=== PATIENT | male | born 1965 | race Caucasian/White ===

== ENCOUNTER 2021-03-24 18:32 | Emergency (ER) | payer OTHER, SELFPAY ==
[2021-03-24 18:50] VITALS: BP 122/83; PULSE 82; RESP 20; TEMP 36.7; O2SAT 98
--- NOTE | 2021-03-24 18:54 | ECG_ITS ---
Measurements Intervals [place] Rate: 73 P: 35 RI: 135 QRS: 14 QRSD: 86 T: 8 QT: 371 QTc: 411 Interpretive Statements SINUS RHYTHM NORMAL ECG Electronically Signed On 03-27-2021 14:27:59 CDT by Atif Richey D.O.
--- NOTE | 2021-03-24 18:54 | ED.CHESTPAIN ---
HPI - Chest Pain General Chief Complaint: Chest Pain Stated Complaint: cp/sob Time Seen by Provider: 03/24/21 18:54 Source: patient Mode of arrival: ambulatory Limitations: no limitations History of Present Illness HPI narrative: Lencho Wynne is a 55 yo male with anxious behavior over a 5-minute episode of chest discomfort around noon with some numbness of his left arm. It resolved on his own and he did nothing to address it until 7:00p when he comes here and is concerned about what might have been going on. He has had no shortness of breath, no further chest pain or discomfort, he has not been lightheaded; medically is only on antidepressant, does not smoke. he is not overweight and has a pcp - whom he did not call today Related Data Home Medications Medication Instructions Recorded Confirmed sertraline mg 03/24/21 Allergies Allergy/AdvReac Type Severity Reaction Status Date / Time No Known Drug Allergies Allergy Verified 10/06/12 10:02 Review of Systems Review of Systems: Narrative: CONSTITUTIONAL: Denies fever, chills, sweats. EYES: Denies visual changes, redness, discharge. ENT: Denies rhinorrhea, congestion, sore throat, otalgia. CARDIOVASCULAR: Denies chest pain, palpitations, edema. RESPIRATORY: Denies dyspnea, wheezing, cough GASTROINTESTINAL: Denies abdominal pain, nausea, vomiting, diarrhea. GENITOURINARY: Denies dysuria, hematuria, abnormal discharge SKIN: Denies rash or itching. NEUROLOGIC: Denies numbness, or focal weakness. PSYCHIATRIC: Denies anxiety or depression. Episode of 5 minutes is chest wall discomfort with arm tingling around noon today that resolved spontaneously but patient decided to come in to be evaluated hours later PMFSH Past Medical History Medical History Anxiety OCD (obsessive compulsive disorder) Renal calculi Family History Family History (Updated 03/24/21 @ 18:58 by Heidi Yoon CNP) Other Colon cancer Social History Social History (Updated 03/24/21 @ 18:58 by Heidi Yoon CNP) Smoking status: Never smoker Alcohol intake: current Comments At time of signature, I agree with nursing past medical, surgical, social and family history. There is no relevant family history pertinent to the presenting complaint. Exam Narrative: Exam Narrative: GENERAL: This is a well-nourished, well-developed patient, in mild distress. anxiety HEAD: normocephalic, atraumatic. EYES: Sclera clear/white. Vision is grossly intact. EARS: External ears normal. Hearing grossly intact. NOSE: External nose normal without nasal discharge, nares without redness, no rhinorrhea. THROAT: Mucous membranes moist, NECK: Neck supple, CARDIOVASCULAR: Regular rate and rhythm without murmurs, gallops, or rubs. RESPIRATORY: Clear to auscultation. Breath sounds equal bilaterally. No wheezes, rales, or rhonchi. GASTROINTESTINAL: Abdomen soft, SKIN: warm, intact with no suspicious lesions or rash, good texture and turgor. NEURO: awake, alert, and oriented to person, place and time. There were no obvious focal neurologic abnormalities. Steady gait EXTREMITIES: Normal range of motion. BACK: Nontender without deformity Course Course Emergency Course: 55-year-old male who comes to the [facility] with complaints of 5 minutes of heart discomfort and numbness in the left arm around noon he decided later hours later to come for evaluation His EKG shows a normal sinus rhythm at 73, he has normal MN interval, there is no QRS abnormality, he has no axis deviation, no PVCs Plan is for patient to follow-up with his primary care physician on Saturday if he should have a recurrent episode he is to go to the ER for blood work and an additional EKG. patient verbalizes understanding and while he is not at risk other than by age (no smoking no drug usage no high blood pressure no high cholesterol) recurrent episode should be worked up Vital Signs Vital s
== END 2021-03-24 19:23 | disposition home or self-care (01) ==
PROVIDERS: Emergency Provider Nurse Practitioner
DX: R07.89 Other chest pain (principal); F41.9 Anxiety disorder, unspecified; F42.9 Obsessive-compulsive disorder, unspecified
CPT/HCPCS: 93005; 99202; G0463

== ENCOUNTER 2021-07-31 20:02 | Emergency (ER) | payer OTHER, SELFPAY ==
[2021-07-31] VITALS (7 sets, daily range): BP systolic 124–134; BP diastolic 74–94; PULSE 76–86; RESP 12–20; TEMP 36.6; O2SAT 92–100
--- NOTE | ~2021-07-31 | XR_ITS ---
EXAMINATION: XR chest 2V DATE: 07/31/2021 20:39 INDICATION: Chest pain. TECHNIQUE: Frontal and lateral views of the chest were obtained. COMPARISON: None. FINDINGS: The chest demonstrates clear lungs without pneumonia, pleural effusion, or pneumothorax. Th e heart size is normal. There is mild anterior wedging of a midthoracic vertebral body, likely chroni c. IMPRESSION: 1. No acute cardiopulmonary disease. Reviewed, dictated and finalized at location A.
--- NOTE | 2021-07-31 20:13 | ECG_ITS ---
Measurements Intervals [place] Rate: 82 P: 25 VA: 139 QRS: 1 QRSD: 92 T: 8 QT: 354 QTc: 414 Interpretive Statements SINUS RHYTHM NORMAL ECG Electronically Signed On 08-01-2021 5:21:50 CDT by Atif Richey D.O.
--- NOTE | 2021-07-31 20:27 | PC.NURSE ---
Called lab and spoke to Pam to add on CMP, Lip [phone]
[2021-07-31 20:33] LABS: Basophils Absolute Auto 0.1 K/mm3 (0.0-0.1); Basophils Percent Auto 0.4 % (0.2-1.2); Eosinophils Absolute Auto 0.5 K/mm3 (0-0.3); Eosinophils Percent Auto 3.6 % (0-4.4); Hematocrit 46.6 % (42.0-52.0); Hemoglobin 15.9 g/dL (14.0-18.0); Immature Granulocyte Absolute 0.04 K/mm3 (0.00-0.031); Immature Granulocyte Percent A 0.3 % (0-0.5); Lymphocytes Absolute Auto 1.53 K/mm3 (0.9-3.2); Lymphocytes Percent Auto 12.1 % (18.3-44.2); Mean Corpuscular HGB Conc 34.1 g/dl (32-36); Mean Corpuscular Hemoglobin 30.9 pg (26-34); Mean Corpuscular Volume 90.7 fl (80-100); Mean Platelet Volume 9.4 fl (7.4-10.4); Monocytes Absolute Auto 0.8 K/mm3 (0.1-0.6); Monocytes Percent Auto 6.6 % (2.6-8.5); Neutrophils Absolute Auto 9.8 K/mm3 (1.3-6.7); Platelet Count Result 275 k/mm3 (150-375); Red Blood Count 5.14 M/mm3 (4.6-6.20); Red Cell Distribution Width 13.9 % (11.5-14.5); White Blood Count 12.7 K/mm3 (4.5-10.0)
[2021-07-31 20:42] LABS: Alanine Aminotransferase 28 U/L (4-50); Albumin Level 4.3 g/dL (3.5-5.1); Alkaline Phosphatase 125 U/L (38-126); Anion Gap 8 mmol/L (8-16); Aspartate Amino Transferase 40 U/L (17-59); Bilirubin,Total 0.6 mg/dL (0.2-1.3); Blood Urea Nitrogen 18 mg/dL (9-20); Calcium 9.6 mg/dL (8.4-10.2); Carbon Dioxide 24 mmol/L (22-30); Chloride 107 mmol/L (98-107); Estimated CRCL calculation 95 ml/min; Estimated Glomerular Filt Rate > 60; Glucose 113 mg/dL (65-110); Lipase 226 U/L (23-300); Potassium 4.3 mmol/L (3.4-5.0); Sodium 139 mmol/L (137-145)
[2021-07-31 20:43] LABS: INR 0.9
[2021-07-31 20:44] LABS: Partial Thromboplastin Time 25.2 SECONDS (22.3-36.8)
[2021-07-31 20:54] LABS: Troponin I < 0.012 ng/mL (0.000-0.034)
--- NOTE | 2021-07-31 20:58 | ED.CHESTPAIN ---
HPI - Chest Pain General Chief Complaint: Chest Pain Stated Complaint: diarrhea, abd pain, chest discomfort, cold sweats Time Seen by Provider: 07/31/21 20:52 Source: RN notes reviewed History of Present Illness HPI narrative: Patient presents emergency department from home for multiple complaints. Patient states that this morning developed some lower midsternal chest pain described as burning in nature he states that is a mild discomfort and has been there throughout the day he states that this evening he developed some abdominal pain in the upper abdomen and had an episode of diarrhea states the following diarrhea the abdominal pain resolved however he went on [employer] and read about all the symptoms and says they could all be symptoms of a heart attack so he presented to the emergency department for further evaluation patient did note mild dizziness with his abdominal pain and diarrhea that is also resolved he states he has been out of his pills for his gastric reflux he denies any shortness of breath Related Data Home Medications Medication Instructions Recorded Confirmed sertraline mg 03/24/21 Allergies Allergy/AdvReac Type Severity Reaction Status Date / Time No Known Drug Allergies Allergy Other Verified 07/31/21 20:36 Review of Systems Review of Systems: Gen.: Denies fevers or chills ENT: Denies congestion Respiratory: Denies shortness of breath or cough CV: Ports lower midsternal chest pain GI: See HPI denies burning, urgency, frequency or hematuria Musculoskeletal: Denies back pain or muscle pain Neuro: Denies numbness, tingling, weakness or focal weakness Skin: Denies rash Except as documented, all other systems reviewed and negative PMFSH Past Medical History Medical History Anxiety OCD (obsessive compulsive disorder) Renal calculi Family History Family History (Updated 03/24/21 @ 18:58 by Heidi Yoon CNP) Other Colon cancer Social History Social History Smoking status: Never smoker Alcohol intake: current Exam Narrative: APPEARANCE: No acute distress, nontoxic, resting in bed EYES: EOMI HEENT: Normocephalic, atraumatic, OMM RESPIRATORY: No respiratory distress Clear to auscultation bilaterally with no rhonchi wheezing or rales. CARDIOVASCULAR: Regular rate and rhythm without murmurs rubs or gallops. ABDOMINAL: Soft, nontender, nondistended, no rebound or guarding MUSCULOSKELETAl: Moves all extremities. No clubbing, cyanosis or edema. NEURO: Awake and alert. Following commands, speech normal, no focal deficits SKIN:: Warm, dry. No rashes lesions or abrasions PSYCHIATRIC: Normal affect/mood, Course Course Emergency Course: Patient states all symptoms are resolved following GI cocktail Discussed with patient results of workup and diagnosis. Discussed need for follow-up with primary care, proper use of medication, and reasons to return to the emergency department. Patient understands and agrees to current treatment plan patient states he is out of his Protonix and will refill Vital Signs Vital signs: Vital Signs Temperature 97.9 F 07/31/21 20:23 Pulse Rate 86 07/31/21 20:23 Respiratory Rate 20 07/31/21 20:23 Blood Pressure 134/94 H 07/31/21 20:23 Pulse Oximetry 94 07/31/21 20:23 Temperature 97.9 F 07/31/21 20:23 Pulse Rate 78 07/31/21 23:12 Respiratory Rate 18 07/31/21 23:12 Blood Pressure 126/75 07/31/21 23:12 Pulse Oximetry 100 07/31/21 23:12 MDM - Chest Pain MDM Narrative Medical decision making narrative: Patient's EKGs and labs are without significant high risk changes. Cardiac risk factors reviewed. Patient is felt likely low risk for ACS and reasonable for further risk stratification testing as an outpatient. Pain was not sudden or maximal in onset without tearing or ripping quality. No other signs of symptoms suggest aort
[2021-07-31 23:31] LABS: Troponin I < 0.012 ng/mL (0.000-0.034)
[2021-08-01 00:17] VITALS: BP 108/79; PULSE 95; RESP 16; O2SAT 96
== END 2021-08-01 00:20 | disposition home or self-care (01) ==
PROVIDERS: Emergency Provider Emergency Medicine; PCP Family Medicine Adolescent Medicine
DX: R10.9 Unspecified abdominal pain (principal); R07.89 Other chest pain; R19.7 Diarrhea, unspecified; F41.9 Anxiety disorder, unspecified; F42.9 Obsessive-compulsive disorder, unspecified; Z87.442 Personal history of urinary calculi
CPT/HCPCS: 36415; 71046; 80053; 83690; 84484; 85025; 85610; 85730; 93005; 99284; A9270

== ENCOUNTER 2021-08-09 18:20 | Emergency (ER) | payer OTHER, SELFPAY ==
--- NOTE | ~2021-08-09 | XR_ITS ---
XR abdomen/kub 1V DATE: 08/09/2021 20:05 INDICATION: Left lower quadrant abdominal pain TECHNIQUE: AP projection, 2 views COMPARISON: None FINDINGS: The psoas shadows are intact. No visceromegaly is evident. There are some nondilated gas containing small bowel segments overlying the left midabdomen, which ma y represent mild adynamic ileus. There is a prominent of fecal material in the right colon but no evidence of bowel obstruction. Degenerative changes of the lumbar spine. IMPRESSION: Mild adynamic ileus is suggested Reviewed, dictated and finalized at Location A. Reviewed, dictated and finalized at location A.
[2021-08-09 18:31] VITALS: BP 128/89; PULSE 115; RESP 16; TEMP 36.7; O2SAT 99
--- NOTE | 2021-08-09 19:46 | ED.ABDPAIN ---
HPI - Abdominal Pain General Chief Complaint: Abdominal Pain Stated Complaint: left side pain Time Seen by Provider: 08/09/21 19:19 Source: patient and RN notes reviewed Mode of arrival: ambulatory Limitations: no limitations History of Present Illness HPI narrative: Patient presents today complaining of left lower quadrant abdominal pain x2 days. Denies nausea, vomiting, diarrhea, constipation, fever, urinary symptoms. Currently rates his pain 2/10, and states the pain is worse with moving and twisting. He denies any additional complaints of any kind. History of GERD and kidney stones. He has been eating and drinking normally. He was seen in the ER at [facility] for chest pain and diarrhea on 31 July. He then followed up with his PCP and was given a prescription for hyoscyamine but has not taken any. MD elicited complaint: abdominal pain Related Data Home Medications Medication Instructions Recorded Confirmed sertraline mg 03/24/21 Adults Multivitamin 08/09/21 hyoscyamine sulfate mg 08/09/21 Allergies Allergy/AdvReac Type Severity Reaction Status Date / Time No Known Drug Allergies Allergy Other Verified 07/31/21 20:36 Review of Systems Review of Systems: CONSTITUTIONAL: Denies body aches, fever, chills, or sweats. EYES: Denies visual changes, redness, or discharge. ENT: Denies rhinorrhea, congestion, sore throat, or otalgia. CARDIOVASCULAR: Denies chest pain, palpitations, or edema. RESPIRATORY: Denies cough or dyspnea. GASTROINTESTINAL: Denies nausea, vomiting, or diarrhea.+ Abdominal pain GENITOURINARY: Denies dysuria or hematuria. SKIN: Denies rash, itching, or wounds. MUSCULOSKELETAL: Denies back pain, joint pain, or myalgia. NEUROLOGIC: Denies headache, numbness, tingling, or weakness. PSYCH: Denies depression or anxiety. [facility] Past Medical History Medical History Anxiety OCD (obsessive compulsive disorder) Renal calculi Family History Family History Other Colon cancer Social History Social History Smoking status: Never smoker Alcohol intake: current Comments At time of signature, I have reviewed and agree with nursing past medical, surgical, social and family history unless otherwise noted. Please see nursing chart for further information. There is no relevant family history pertinent to the presenting complaint Exam Narrative: GENERAL: Well-appearing, well-nourished, and in no acute distress. HEAD: Normocephalic, atraumatic. EYES: EOMI. No redness or drainage. Conjunctivae normal. ENT: Mucous membranes pink and moist. NECK: Normal AROM. Supple. No lymphadenopathy. CHEST: No respiratory distress. Clear to auscultation. HEART: Regular rate and rhythm. No murmur appreciated. Normal peripheral pulses. ABDOMEN: Soft, nondistended, normal active bowel sounds. + Left-sided abdominal tenderness MUSCULOSKELETAL: No bony tenderness. EXTREMITIES: Normal range of motion. No edema. SKIN: Warm, dry, no rash. Capillary refill normal. Normal skin turgor. NEURO: No focal deficits. Alert and oriented x3. Gait steady. PSYCH: Normal affect. No signs of depression or anxiety. Course Vital Signs Vital signs: Vital Signs Temperature 98.0 F 08/09/21 18:31 Pulse Rate 115 H 08/09/21 18:31 Respiratory Rate 16 08/09/21 18:31 Blood Pressure 128/89 08/09/21 18:31 Pulse Oximetry 99 08/09/21 18:31 Temperature 98.0 F 08/09/21 18:31 Pulse Rate 115 H 08/09/21 18:31 Respiratory Rate 16 08/09/21 18:31 Blood Pressure 128/89 08/09/21 18:31 Pulse Oximetry 99 08/09/21 18:31 Reviewed. Pt has been instructed to follow up with his PCP regarding his elevated blood pressure today. MDM - Abdominal Pain Differential Diagnosis Differential diagnosis: Likely abdominal pain, calcul
== END 2021-08-09 20:45 | disposition home or self-care (01) ==
PROVIDERS: Emergency Provider Nurse Practitioner; PCP Family Medicine Adolescent Medicine
DX: R10.32 Left lower quadrant pain (principal)
CPT/HCPCS: 74018; 81003; 99213; G0463

== ENCOUNTER 2021-10-10 15:29 | Outpatient (CLI) | payer OTHER, SELFPAY ==
--- NOTE | ~2021-10-10 | CT_ITS ---
EXAMINATION: CT abdomen pelvis w con EXAM DATE: 10/10/2021 16:11 INDICATION: Right lower quadrant pain. TECHNIQUE: Spiral CT of the abdomen and pelvis was performed following intravenous injection of 100 m L Omnipaque 350. Axial, coronal and sagittal images of the abdomen and pelvis were reviewed. The do se-length product (DLP) for this examination was 717.10 mGy-cm. The exposure was tailored according to patient size (auto mA exposure control), and iterative reconstruction (ASIR) was used as additiona l dose reduction technique. There is no prior study for comparison. FINDINGS: There is a 1.4 cm right liver lobe cyst. The liver, spleen, adrenal glands and pancreas ar e otherwise unremarkable. Gallbladder is unremarkable. No biliary obstruction. Numerous renal lesi ons which are lobular, most are fluid density, probably cysts. Lesion of the posterior cortex left ki dney measures 1.2 cm, could be a hemorrhagic cyst, similar appearing smaller one on the right kidney. Renal cell cancers can't be excluded. There is 5 mm right mid calyceal stone. No ureteral stones or hydronephrosis. Mild prostatomegaly. Small left inguinal fat-containing hernia. The bladder is unre markable. There is no retroperitoneal or pelvic lymphadenopathy. There is appendicolith within an otherwise unremarkable appendix. The stomach and small bowel are un remarkable. There is expected amount of colonic stool. No free intraperitoneal gas. The heart is normal in size. There are no pericardial or pleural effusions. There is a 4 mm nodule right lower lobe, axial image 4 most likely noncalcified granuloma. Optional one-year follow-up chest CT. There are no osteoblastic or osteolytic lesions identified. IMPRESSION: 1. Appendicolith. Appendix otherwise unremarkable. No acute findings. 2. Renal lesions likely cysts and hemorrhagic cysts; follow-up nonemergent MR abdomen with contrast recommended to exclude solid mass. 3. Right nephrolithiasis. Reviewed, dictated and finalized at location B. RAM DEVELOPER
== END 2021-10-10 15:30 | disposition home or self-care (01) ==
PROVIDERS: PCP Family Medicine Adolescent Medicine; Visit Provider Physician Assistant
DX: R10.31 Right lower quadrant pain (principal); K38.1 Appendicular concretions; N28.9 Disorder of kidney and ureter, unspecified; N28.1 Cyst of kidney, acquired; N20.0 Calculus of kidney
CPT/HCPCS: 74177; Q9967

== ENCOUNTER → 2021-10-31 10:43 | Outpatient (CLI) | payer OTHER, SELFPAY ==
--- NOTE | ~2021-10-31 | MR_ITS ---
EXAMINATION: MR abdomen wo/w con DATE: 10/31/2021 11:41 INDICATION: Indeterminate 1.2 cm left renal lesion identified on prior CT. TECHNIQUE: Magnetic resonance imaging (MRI) of the abdomen was performed without and with 17 mL Multi joo intravenous contrast. Sequences included coronal T2-weighted SS-FSE, coronal and axial FS 2D-F IESTA, axial STIR FSE, axial T2-weighted SS-FSE, axial T2-weighted FS SS-FSE, axial diffusion-weighte d SE, axial dual-echo T1-weighted FSPGR, and axial and coronal T1-weighted LAVA. Postcontrast axial T 1-weighted LAVA images were obtained in a time course. Postcontrast coronal T1-weighted LAVA images w ere obtained. COMPARISON: 10/10/2021 FINDINGS: Heart size is normal. No pericardial or pleural effusion. Nonenhancing 1.3 cm T2 hyperintense cyst in the right hepatic lobe. Gallbladder, pancreas, spleen and bilateral adrenal glands are normal. Again seen are multiple simple appearing T2 hyperintense cysts scattered throughout both kidneys. The larg est measuring 4.2 cm at the upper pole of the left kidney and 2.4 cm at the upper pole of the right k idney. There are few additional complex proteinaceous/hemorrhagic cysts in both kidneys which are wit hout enhancement but with slightly decreased T2 hyperintensity and mildly increased T1 signal. 1.4 cm solid enhancing exophytic lesion at the posterior upper pole of the left kidney consistent with louann l cell carcinoma. There is an additional indeterminate 11 mm exophytic lesion at the posterior upper pole of the right kidney with minimally thickened peripheral wall with discernible but not measurable enhancement and with central proteinaceous/hemorrhagic fluid, Bosniak 2F. Visualized portion of the bowels including the appendix are normal. No pathologically enlarged abdominal lymphadenopathy. Moder ate lumbar spondylosis. Normal bone marrow signal throughout. IMPRESSION: 1. 1.4 cm solid enhancing exophytic lesion at the posterior upper pole of the left kidney consistent with renal cell carcinoma. 2. Multiple additional renal cysts and complex cysts including an 11 mm Bosniak 2F cystic lesion massimo esponding to the lesion of concern at the upper pole of the right kidney. Reviewed, dictated and finalized at location B. [employer] IMPRESSION: 1. 1.4 cm solid enhancing exophytic lesion at the posterior upper pole of the l eft kidney consistent with renal cell carcinoma. 2. Multiple additional renal cysts and complex cysts including an 11 mm Bosniak 2F cystic lesion corresponding to the lesion of concern at the upper pole of t he right kidney.
[2021-10-31 11:15] LABS: Estimated Glomerular Filt Rate > 60
== END ==
PROVIDERS: PCP Family Medicine Adolescent Medicine; Visit Provider Physician Assistant
DX: N28.9 Disorder of kidney and ureter, unspecified (principal)
CPT/HCPCS: 74183; A9577

== ENCOUNTER 2021-11-23 15:24 | Emergency (ER) | payer OTHER, SELFPAY ==
--- NOTE | ~2021-11-23 | XR_ITS ---
EXAMINATION: XR chest 2V DATE: 11/23/2021 16:24 INDICATION: Chest tightness. Shortness of breath. TECHNIQUE: Frontal and lateral views of the chest were obtained. COMPARISON: Chest 2 views 07/31/21, CT abdomen and pelvis 10/10/2021 FINDINGS: The chest demonstrates clear lungs without pneumonia, pleural effusion, or pneumothorax. Th e heart size is normal. There is mild chronic anterior wedging of a midthoracic vertebral body. IMPRESSION: 1. No acute cardiopulmonary disease. Reviewed, dictated and finalized at location B. PRINTER
--- NOTE | 2021-11-23 15:26 | ECG_ITS ---
Measurements Intervals [place] Rate: 77 P: 53 WI: 129 QRS: 18 QRSD: 89 T: 27 QT: 367 QTc: 417 Interpretive Statements SINUS RHYTHM ATRIAL COUPLET POSSIBLE LEFT ATRIAL ENLARGEMENT BORDERLINE ST-T WAVE ABNORMALITY- INFERIOR LEADS BASELINE ARTIFACT- III, AVR, AVL, AVF BORDERLINE ECG Electronically Signed On 11-23-2021 15:43:05 SAMPLER FIRST by Atif Richey D.O.
[2021-11-23 15:28] VITALS: BP 118/86; PULSE 73; RESP 18; TEMP 36.2; O2SAT 92
[2021-11-23 15:55] LABS: Basophils Absolute Auto 0.1 K/mm3 (0.0-0.1); Basophils Percent Auto 0.6 % (0.2-1.2); Eosinophils Absolute Auto 0.4 K/mm3 (0-0.3); Eosinophils Percent Auto 4.5 % (0-4.4); Hematocrit 46.9 % (42.0-52.0); Immature Granulocyte Absolute 0.03 K/mm3 (0.00-0.031); Immature Granulocyte Percent A 0.3 % (0-0.5); Lymphocytes Percent Auto 16.3 % (18.3-44.2); Mean Corpuscular HGB Conc 34.1 g/dl (32-36); Mean Corpuscular Volume 90.9 fl (80-100); Mean Platelet Volume 9.5 fl (7.4-10.4); Monocytes Absolute Auto 0.6 K/mm3 (0.1-0.6); Monocytes Percent Auto 6.4 % (2.6-8.5); Neutrophils Absolute Auto 6.2 K/mm3 (1.3-6.7); Neutrophils Percent Auto 71.9 % (45.5-73.1); Platelet Count Result 287 k/mm3 (150-375); Red Blood Count 5.16 M/mm3 (4.6-6.20); Red Cell Distribution Width 13.8 % (11.5-14.5); White Blood Count 8.6 K/mm3 (4.5-10.0)
[2021-11-23 16:04] LABS: Alanine Aminotransferase 28 U/L (4-50); Albumin Level 4.5 g/dL (3.5-5.1); Alkaline Phosphatase 120 U/L (38-126); Anion Gap 10 mmol/L (8-16); Aspartate Amino Transferase 37 U/L (17-59); Bilirubin,Total 0.6 mg/dL (0.2-1.3); Blood Urea Nitrogen 17 mg/dL (9-20); Calcium 9.5 mg/dL (8.4-10.2); Carbon Dioxide 24 mmol/L (22-30); Chloride 104 mmol/L (98-107); Estimated CRCL calculation 108 ml/min; Estimated Glomerular Filt Rate > 60; Glucose 111 mg/dL (65-110); Lipase 113 U/L (23-300); Potassium 4.1 mmol/L (3.4-5.0); Sodium 138 mmol/L (137-145)
[2021-11-23 16:16] LABS: Troponin I < 0.012 ng/mL (0.000-0.034)
[2021-11-23 16:47] LABS: INR 1.1; Prothrombin Time 13.9 Seconds (11.1-14.7)
[2021-11-23 16:48] LABS: Partial Thromboplastin Time 27.3 SECONDS (22.3-36.8)
[2021-11-23 18:22] VITALS: BP 117/83; PULSE 80; RESP 16; O2SAT 98
[2021-11-23 19:08] LABS: Troponin I < 0.012 ng/mL (0.000-0.034)
[2021-11-23 19:29] VITALS: BP 126/84; PULSE 65; PULSE 67; RESP 18; O2SAT 97
[2021-11-23 20:00] VITALS: BP 118/86; PULSE 71; RESP 17; O2SAT 93
--- NOTE | 2021-11-23 20:03 | ED.CHESTPAIN ---
HPI - Chest Pain General Chief Complaint: Chest Pain Stated Complaint: CP Time Seen by Provider: 11/23/21 19:40 History of Present Illness HPI narrative: Patient is a 56-year-old male who presents to the ER with intermittent chest tightness over the last 2 days. Tightness will be central. No radiation. No association with exertion. No nausea or vomiting or dizziness. No diaphoresis or dyspnea. No history of heart disease. No alleviating factors. Recently diagnosed with kidney cancer and is going to be seeing urology. Patient also reports he has been diagnosed with a kidney stone and he takes Flomax and tramadol. Related Data Home Medications Medication Instructions Recorded Confirmed sertraline mg 03/24/21 Adults Multivitamin 08/09/21 hyoscyamine sulfate mg 08/09/21 Allergies Allergy/AdvReac Type Severity Reaction Status Date / Time No Known Drug Allergies Allergy Other Verified 11/23/21 19:31 Review of Systems Review of Systems: All systems reviewed & are unremarkable except as noted in HPI and below Constitutional: Constitutional: Denies chills, Denies fever(s) and Denies weakness ENT: Denies nasal congestion and Denies sore throat Cardiovascular: Cardiovascular: Reports chest pain, Denies rapid heart rate and Denies radiating jaw, neck or arm pain Respiratory: Respiratory: Denies cough, Denies dyspnea and Denies wheezing Gastrointestinal: Gastrointestinal: Denies diarrhea, Denies nausea and Denies vomiting Genitourinary: Genitourinary: Denies hematuria, Denies dysuria and Denies urinary frequency PMFSH Past Medical History Medical History (Updated 11/23/21 @ 20:32 by Per Sharma MD) Anxiety Cancer of kidney OCD (obsessive compulsive disorder) Renal calculi Surgical History Surgical History (Updated 11/23/21 @ 20:30 by Per Sharma MD) No pertinent past surgical history Family History Family History Other Colon cancer Social History Social History Smoking status: Never smoker Alcohol intake: current Exam Narrative: GENERAL: Well-appearing, well-nourished, and in no acute distress. HEAD: Normocephalic, atraumatic. CHEST: Clear to auscultation. No respiratory distress. HEART: Regular rate and rhythm. Normal peripheral pulses. ABDOMEN: Soft, nontender, nondistended. EXTREMITIES: Normal range of motion. No edema. SKIN: Warm, dry, no rash. NEURO: Alert and oriented x3. PSYCH: Normal mood and affect. Course Course Emergency Course: Previous imaging reviewed. Appendicolith present on CT scan from 6 weeks ago. No tenderness on abdominal exam today. EKG and troponins negative for acute ischemia. Recommend follow-up with PCP. Vital Signs Vital signs: Vital Signs Temperature 97.1 F L 11/23/21 15:28 Pulse Rate 73 11/23/21 15:28 Respiratory Rate 18 11/23/21 15:28 Blood Pressure 118/86 11/23/21 15:28 Pulse Oximetry 92 11/23/21 15:28 Temperature 97.1 F L 11/23/21 15:28 Pulse Rate 75 11/23/21 20:16 Respiratory Rate 19 11/23/21 20:16 Blood Pressure 118/86 11/23/21 20:00 Pulse Oximetry 93 11/23/21 20:16 MDM - Chest Pain Lab Data Result diagrams: 11/23/21 15:38 11/23/21 15:38 Labs: Lab Results 11/23/21 11/23/21 11/23/21 Range/Units 15:38 15:38 15:38 WBC 8.6 (4.5-10.0) K/mm3 RBC 5.16 (4.6-6.20) M/mm3 Hgb 16.0 (14.0-18.0) g/dL Hct 46.9 (42.0-52.0) % MCV 90.9 (80-100) fl MCH 31.0 (26-34) pg MCHC 34.1 (32-36) g/dl RDW 13.8 (11.5-14.5) % Plt Count 287 (150-375) k/mm3 MPV 9.5 (7.4-10.4) fl Immature Gran % (Auto) 0.3 (0-0.5) % Neut % (Auto) 71.9 (45.5-73.1) % Lymph % (Auto) 16.3 L (18.3-44.2) % [place] % (Auto) 6.4 (2.6-8.5) % Eos % (Auto) 4.5 H (0-4.4) % Baso % (Auto) 0.6 (0.2-1.2) % Lymph #
[2021-11-23 20:15] VITALS: PULSE 78; RESP 12; O2SAT 93
[2021-11-23 20:16] VITALS: PULSE 75; RESP 19; O2SAT 93
== END 2021-11-23 20:30 | disposition home or self-care (01) ==
PROVIDERS: Emergency Medicine; Emergency Provider Emergency Medicine; PCP Family Medicine Adolescent Medicine
DX: R07.89 Other chest pain (principal); C64.9 Malignant neoplasm of unspecified kidney, except renal pelvis; F41.9 Anxiety disorder, unspecified; Z87.442 Personal history of urinary calculi; R00.8 Other abnormalities of heart beat; R94.31 Abnormal electrocardiogram [ECG] [EKG]
CPT/HCPCS: 36415; 71046; 80053; 83690; 84484; 85025; 85610; 85730; 93005; 99284

== ENCOUNTER 2021-12-23 23:09 | Emergency (ER) | payer OTHER, SELFPAY ==
--- NOTE | ~2021-12-23 | XR_ITS ---
EXAMINATION: XR chest 1V portable DATE: 12/24/2021 00:28 INDICATION: Fever and chills. TECHNIQUE: A single frontal view of the chest was obtained. COMPARISON: Chest 2 views 11/23/2021, chest CT 12/24/2021 FINDINGS: There is mild atelectasis in the lower lung zones. No pleural effusion or pneumothorax. The heart size is normal. There is free intraperitoneal gas, consistent with recent surgery. IMPRESSION: 1. Mild atelectasis in the lower lung zones. Reviewed, dictated and finalized at location A. HT TEACHER
--- NOTE | ~2021-12-23 | CT_ITS ---
EXAMINATION: CTA chest PE abdomen pel DATE: 12/24/2021 02:28 INDICATION: Fever. Hypoxia. Surgery yesterday. TECHNIQUE: Computed tomography angiography (CTA) of the chest was performed with 100 mL Omnipaque-350 intravenous contrast timed to evaluate the pulmonary arteries. Coronal maximum intensity projection 3D-reconstructions were created by the technologist. Computed tomography (CT) of the abdomen and pelv is was performed with intravenous contrast. Automated exposure control and iterative reconstruction t echnique were employed. The dose-length product was 1107.88 mGy-cm. COMPARISON: CT abdomen and pelvis 10/10/2021, abdomen MRI 10/31/2021 FINDINGS: CTA chest: The lungs demonstrate dependent atelectasis, worst in the lower lobes and lingula. There i s a trace left pleural effusion. The heart size is normal. No pericardial effusion. There is no pulmo nary embolus. There is mild thoracic spondylosis. CT abdomen and pelvis: There is a 13 mm cyst in the liver. The gallbladder, spleen, pancreas, and adr enal glands are normal. There are changes of partial nephrectomy involving left kidney upper pole. Th ere is a small volume of fluid in the area of the surgery. There is fat stranding in the left retrope ritoneum. There is gas in the left retroperitoneum and body wall. There is a small volume of free gas under the diaphragm. There are cysts and hemorrhagic cysts in the kidneys measuring up to 2.6 cm on the right. There is a left inguinal hernia containing fat. There is trace hemoperitoneum in the pelvi s. There are no dilated loops of bowel. There are changes of appendectomy. There is gas in the bladde r lumen. There is severe lower lumbar spondylosis. IMPRESSION: 1. No pulmonary embolus. 2. Surgical changes of recent left partial nephrectomy. Reviewed, dictated and finalized at location A. [employer]OLOGIST
[2021-12-23 23:23] VITALS: BP 148/79; PULSE 113; RESP 20; TEMP 37.2; O2SAT 94
[2021-12-24] MEDS: SODIUM CHLORIDE 0.9% IV 1,000 ML 999 ML IV CONT (00:17)
[2021-12-24] MEDS: MORPHINE SULFATE (*CRX) 4 MG/ML INJ IV PUSH (00:17)
[2021-12-24] MEDS: ONDANSETRON INJ 4 MG/2 ML VIAL IV PUSH (00:17)
[2021-12-24 00:27] VITALS: BP 143/85
[2021-12-24 00:32] VITALS: BP 139/88; PULSE 97; RESP 20; O2SAT 91
[2021-12-24 00:32] LABS: Basophils Percent Auto 0.3 % (0.2-1.2); Eosinophils Absolute Auto 0.1 K/mm3 (0-0.3); Eosinophils Percent Auto 0.9 % (0-4.4); Hemoglobin 14.1 g/dL (14.0-18.0); Immature Granulocyte Absolute 0.04 K/mm3 (0.00-0.031); Immature Granulocyte Percent A 0.3 % (0-0.5); Lymphocytes Absolute Auto 1.21 K/mm3 (0.9-3.2); Lymphocytes Percent Auto 10.4 % (18.3-44.2); Mean Corpuscular HGB Conc 34.4 g/dl (32-36); Mean Corpuscular Hemoglobin 31.7 pg (26-34); Mean Corpuscular Volume 92.1 fl (80-100); Mean Platelet Volume 9.5 fl (7.4-10.4); Monocytes Absolute Auto 1.2 K/mm3 (0.1-0.6); Monocytes Percent Auto 10.2 % (2.6-8.5); Neutrophils Percent Auto 77.9 % (45.5-73.1); Platelet Count Result 259 k/mm3 (150-375); Red Blood Count 4.45 M/mm3 (4.6-6.20); Red Cell Distribution Width 14.3 % (11.5-14.5); White Blood Count 11.6 K/mm3 (4.5-10.0)
[2021-12-24 00:43] LABS: Alanine Aminotransferase 25 U/L (4-50); Albumin Level 3.7 g/dL (3.5-5.1); Alkaline Phosphatase 89 U/L (38-126); Anion Gap 4 mmol/L (8-16); Aspartate Amino Transferase 39 U/L (17-59); Bilirubin,Total 0.6 mg/dL (0.2-1.3); Blood Urea Nitrogen 15 mg/dL (9-20); Calcium 9.1 mg/dL (8.4-10.2); Carbon Dioxide 24 mmol/L (22-30); Chloride 108 mmol/L (98-107); Estimated CRCL calculation 107 ml/min; Estimated Glomerular Filt Rate > 60; Glucose 120 mg/dL (65-110); Lactic Acid Reflex 1.3 mmol/L (0.7-2.1); Potassium 3.7 mmol/L (3.4-5.0); Sodium 136 mmol/L (137-145)
[2021-12-24 00:43] LABS: Add Urine Microscopic? NO; Appearance Urine Clear (Clear); Bilirubin Urine Negative (Negative); Blood Urine Negative (Negative); Color Urine Straw (Yellow); Glucose Urine UA Negative (Negative); Ketones Urine Negative (Negative); Leukocyte Esterase Ur Negative LEU/UL (Negative); Nitrate Urine Negative (Negative); Protein Urine Negative (Negative); Specific Grav Ur 1.013 (1.001-1.035); Urobilinogen Urine Negative mg/dL (<2.0)
[2021-12-24 01:09] LABS: SARS-CoV-2 RNA PCR Negative
--- NOTE | 2021-12-24 01:50 | PC.NURSE ---
Patient ambulated with pulse ox, O2 dropped to 87%. Patient ambulated with steady gait. Patient denied any sob. Patient ambulated back to his room and pulse ox increased to 92%.
--- NOTE | 2021-12-24 02:08 | PC.NURSE ---
Patient taken to CT via stretcher.
[2021-12-24 02:28] VITALS: TEMP 37.6
--- NOTE | 2021-12-24 03:38 | ED.GENADULT ---
HPI - General Adult General Chief complaint: Fever Stated complaint: post surgical complications, fever/chills Time Seen by Provider: 12/23/21 23:54 History of Present Illness HPI narrative: Patient 56-year-old gentleman who presents the emergency department with chief complaint of fever. Patient reports he is postoperative from a partial nephrectomy that was done at [facility] by Dr. Garza. Patient reports that he was discharged home has been doing well and tonight noticed a temperature of 101. Patient denies nausea or vomiting reports he has some discomfort in his abdomen from where he had surgery. The patient denies cough denies shortness of breath. Related Data Home Medications Medication Instructions Recorded Confirmed sertraline mg 03/24/21 11/30/21 Adults Multivitamin 08/09/21 11/30/21 hyoscyamine sulfate mg 08/09/21 11/30/21 tamsulosin 0.4 mg capsule 0.4 mg PO DAILY 11/30/21 11/30/21 Allergies Allergy/AdvReac Type Severity Reaction Status Date / Time No Known Drug Allergies Allergy Other Verified 12/24/21 00:21 Review of Systems Review of Systems: A 10 system review of systems was completed on the patient and is negative except for what is stated in the HPI. Nursing and ancillary documentation was reviewed. [facility] Past Medical History Medical History Anxiety Cancer of kidney OCD (obsessive compulsive disorder) Renal calculi Surgical History Surgical History No pertinent past surgical history Family History Family History Other Colon cancer Social History Social History Smoking status: Never smoker Alcohol intake: current Exam Narrative: GENERAL: Well-appearing, well-nourished, and in no acute distress. HEAD: Normocephalic, atraumatic. EYES: PERRLA and EOMI. ENT: Nares clear, no rhinorrhea or epistaxis. Mucous membranes moist. NECK: Supple. CHEST: Clear to auscultation. No respiratory distress. HEART: Regular rate and rhythm. No murmur heard. Normal peripheral pulses. ABDOMEN: Soft, nontender, nondistended, normal active bowel sounds. Incision sites appear intact there is no purulent drainage from the sites. EXTREMITIES: Normal range of motion. No edema. SKIN: Warm, dry, no rash. NEURO: No focal deficits. Alert and oriented x3. PSYCH: Normal mood and affect. Course Course Emergency Course: Laboratory studies showed a white blood cell count of 11.6. Lactate was within normal limits renal function was within normal limits CTA chest and abdomen pelvis showed just postoperative changes throughout the abdomen and no evidence of occult pneumonia. Patient was COVID-19 negative. Patient received IV hydration in the emergency department Case was discussed with Dr. Nguyen who is on-call for the urological service. The patient is to follow-up with his urologist as an outpatient. Vital Signs Vital signs: Vital Signs Temperature 37.2 C 12/23/21 23:23 Pulse Rate 113 H 12/23/21 23:23 Respiratory Rate 20 12/23/21 23:23 Blood Pressure 148/79 H 12/23/21 23:23 Pulse Oximetry 94 12/23/21 23:23 Temperature 37.6 C H 12/24/21 02:28 Pulse Rate 97 12/24/21 00:32 Respiratory Rate 20 12/24/21 00:32 Blood Pressure 139/88 12/24/21 00:32 Pulse Oximetry 91 12/24/21 00:32 Medical Decision Making Vital Signs Vital Signs: Vital Signs Temperature 37.2 C 12/23/21 23:23 Pulse Rate 113 H 12/23/21 23:23 Respiratory Rate 20 12/23/21 23:23 Blood Pressure 148/79 H 12/23/21 23:23 Pulse Oximetry 94 12/23/21 23:23 Temperature 37.6 C H 12/24/21 02:28 Pulse Rate 97 12/24/21 00:32 Respiratory Rate 20 12/24/21 00:32 Blood Pressure 139/88 12/24/21 00:32 Pulse Oximetry 91 12/24/21 00:32
[2021-12-24 03:51] VITALS: BP 139/82; PULSE 99; RESP 17; TEMP 37.4; O2SAT 92
== END 2021-12-24 03:52 | disposition home or self-care (01) ==
PROVIDERS: Emergency Provider Emergency Medicine; PCP Family Medicine Adolescent Medicine
DX: R50.82 Postprocedural fever (principal); C64.2 Malignant neoplasm of left kidney, except renal pelvis; Z90.5 Acquired absence of kidney; Z20.822 Contact with and (suspected) exposure to COVID-19; F41.9 Anxiety disorder, unspecified; F42.9 Obsessive-compulsive disorder, unspecified; Z87.442 Personal history of urinary calculi
CPT/HCPCS: 36415; 71045; 71275; 74177; 80053; 81003; 83605; 85025; 96361; 96374; 96375; 99284; C9803; J2270; J2405; J7030; Q9967; U0003; U0005

== ENCOUNTER 2022-01-17 17:41 | Emergency (ER) | payer OTHER, SELFPAY ==
[2022-01-17 17:48] VITALS: BP 140/77; PULSE 77; RESP 16; TEMP 37.1; O2SAT 97
--- NOTE | 2022-01-17 17:51 | ED.GENADULT ---
HPI - General Adult General Chief complaint: Medical Clearance Stated complaint: cp Source: patient Mode of arrival: ambulatory Limitations: no limitations History of Present Illness HPI narrative: 56-year-old male presented for complaint of left anterior chest discomfort, onset yesterday. Pain is described as a twinge. Denies any associated nausea, vomiting, dizziness, shortness of breath, palpitations. Pain is nonradiating and not reproducible. States is worse when he is standing, better when laying flat. History of renal stones for which she took tramadol yesterday and states he believes the pain started after taking the medicine. Related Data Home Medications Medication Instructions Recorded Confirmed sertraline 50 mg PO DIRECTED 03/24/21 01/17/22 Adults Multivitamin 08/09/21 11/30/21 Allergies Allergy/AdvReac Type Severity Reaction Status Date / Time No Known Drug Allergies Allergy Other Verified 01/17/22 17:45 Review of Systems Review of Systems: CONSTITUTIONAL: Denies body aches, fever, chills, or sweats. EYES: Denies visual changes, redness, or discharge. ENT: Denies rhinorrhea, congestion, sore throat, or otalgia. CARDIOVASCULAR: endorses chest pain denies palpitations, or edema. RESPIRATORY: Denies cough or dyspnea. GASTROINTESTINAL: Denies abdominal pain, nausea, vomiting, or diarrhea. GENITOURINARY: Denies dysuria or hematuria. SKIN: Denies rash, itching, or wounds. MUSCULOSKELETAL: Denies back pain, joint pain, or myalgia. NEUROLOGIC: Denies headache, numbness, tingling, or weakness. PSYCH: Denies depression or anxiety. 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 Please see nursing chart for further information. There is no relevant family history pertinent to the presenting complaint Exam Narrative: GENERAL: Well-appearing, well-nourished, and in no acute distress. HEAD: Normocephalic, atraumatic. EYES: EOMI. No redness or drainage. Conjunctivae normal. ENT: Mucous membranes pink and moist. No rhinorrhea. bilat hearing aides NECK: Normal AROM. Supple. No lymphadenopathy. CHEST: No respiratory distress. Clear to auscultation. HEART: Regular rate and rhythm. No murmur appreciated. Normal peripheral pulses. ABDOMEN: Soft, nontender, nondistended, normal active bowel sounds. MUSCULOSKELETAL: Chest pain not reproducible, full ROM No bony tenderness. EXTREMITIES: Normal range of motion. No edema. SKIN: Warm, dry, no rash. Capillary refill normal. Normal skin turgor. NEURO: No focal deficits. Alert and oriented x3. Gait steady. PSYCH: Normal affect. No signs of depression or anxiety. Course Course Emergency Course: We discussed possible etiologies of cp, states zero pain presently. Pt will monitor for return of pain and worsening of symptoms, and will go to the ER for any concerns. Patient is aware of diagnosis, understands and agrees to treatment plan. Anticipatory guidance given. Patient agrees to follow-up as directed and is aware of reasons to seek care at the emergency department. Portions of this record may have been created with voice recognition software Level of Care: [facility]
== END 2022-01-17 18:06 | disposition home or self-care (01) ==
PROVIDERS: Emergency Provider Nurse Practitioner Family; PCP Family Medicine Adolescent Medicine
DX: R07.89 Other chest pain (principal); F41.9 Anxiety disorder, unspecified; F42.9 Obsessive-compulsive disorder, unspecified; Z85.528 Personal history of other malignant neoplasm of kidney
CPT/HCPCS: 99211; G0463

== ENCOUNTER 2022-09-12 17:30 | Emergency (ER) | payer OTHER, SELFPAY ==
[2022-09-12 17:43] VITALS: BP 132/83; PULSE 76; RESP 16; TEMP 36.4; O2SAT 95
--- NOTE | 2022-09-12 18:15 | ED.ABDPAIN ---
HPI - Abdominal Pain General Chief Complaint: Urogenital-Male Stated Complaint: abd n/v/d Time Seen by Provider: 09/12/22 17:51 Source: patient Mode of arrival: ambulatory Limitations: no limitations History of Present Illness HPI narrative: Patient presents today complaining of left lower quadrant abdominal pain/left flank pain for almost 1 week that has worsened today. Pain is sharp and intermittent. States it is worse in the mornings and is improved throughout the day. States it is also better after he has been moving around. Denies nausea, vomiting, diarrhea, constipation, urinary symptoms, fever. Currently rates pain 10 and has not been taking any [id number] medication for symptoms prior to arrival. History of kidney stones in 2003 as well as left renal carcinoma with tumor removal earlier this year.. Related Data Home Medications Medication Instructions Recorded Confirmed sertraline 50 mg tablet 75 mg PO DAILY 01/31/22 09/12/22 Allergies Allergy/AdvReac Type Severity Reaction Status Date / Time No Known Drug Allergies Allergy Other Verified 09/12/22 17:36 Review of Systems Review of Systems: CONSTITUTIONAL: Denies body aches, fever, chills, or sweats. EYES: Denies visual changes, redness, or discharge. ENT: Denies rhinorrhea, congestion, sore throat, or otalgia. CARDIOVASCULAR: Denies chest pain, palpitations, or edema. RESPIRATORY: Denies cough or dyspnea. GASTROINTESTINAL: Denies nausea, vomiting, or diarrhea.+ Left abdominal pain GENITOURINARY: Denies dysuria or hematuria. SKIN: Denies rash, itching, or wounds. MUSCULOSKELETAL: Denies back pain, joint pain, or myalgia. NEUROLOGIC: Denies headache, numbness, tingling, or weakness. PSYCH: Denies depression or anxiety. 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 Please see nursing chart for further information. There is no relevant family history pertinent to the presenting complaint Exam Narrative: GENERAL: Well-appearing, well-nourished, and in moderate pain distress intermittently when sharp pains appear. HEAD: Normocephalic, atraumatic. EYES: EOMI. No redness or drainage. Conjunctivae normal. ENT: Mucous membranes pink and moist. NECK: Normal AROM. CHEST: No respiratory distress. Clear to auscultation. HEART: Regular rate and rhythm. No murmur appreciated. Normal peripheral pulses. ABDOMEN: Soft, nondistended, normal active bowel sounds.+ Mild tenderness to the left lower quadrant extends laterally. No rebound or guarding. MUSCULOSKELETAL: No bony tenderness. EXTREMITIES: Normal range of motion. No edema. SKIN: Warm, dry, no rash. Capillary refill normal. Normal skin turgor. NEURO: No focal deficits. Alert and oriented x3. Gait steady. PSYCH: Normal affect. No signs of depression or anxiety. Course Course Level of Care: Express Care Visit Vital Signs Vital signs: Vital Signs
== END 2022-09-12 18:30 | disposition short-term general hospital (02) ==
PROVIDERS: Emergency Provider Nurse Practitioner; PCP Family Medicine Adolescent Medicine
DX: R10.32 Left lower quadrant pain (principal); F41.9 Anxiety disorder, unspecified; F42.9 Obsessive-compulsive disorder, unspecified; Z85.528 Personal history of other malignant neoplasm of kidney
CPT/HCPCS: 81003; 99212; G0463

== ENCOUNTER 2022-09-12 18:46 | Emergency (ER) | payer OTHER, SELFPAY ==
--- NOTE | ~2022-09-12 | CT_ITS ---
EXAMINATION: CT abdomen pelvis w con INDICATION: Left lower quadrant pain TECHNIQUE: Computed tomographic images of the abdomen and pelvis were obtained after the administrati on of 100 cc of Omnipaque 350 intravenous contrast. The dose-length product (DLP) was 662.70 mGy-cm. Automated exposure control and iterative reconstruction technique were employed. COMPARISON: 12/24/2021, 10/10/2021 FINDINGS: There are stable nodules of the right lower lobe measuring up to 3 mm. Minimal dependent at electasis is present in the lung bases. The heart size is normal. There is a millimeters cyst of the right hepatic lobe. The spleen, pancreas, gallbladder, and adrenal glands are normal. There are ramirez es of bilateral partial nephrectomy. Simple and hemorrhagic cysts of the kidneys measure up to 2.2 cm on the right. There is a stable 12 mm soft tissue density lesion in the posterolateral aspect of the right mid kidney. There is a 7 mm nonobstructing stone of the right kidney. No pathologically enlarg ed abdominal or pelvic lymph nodes are identified. There is no free intraperitoneal gas or evidence o f bowel obstruction. There is a chronic appendicolith in the otherwise normal appendix. There is a le ft inguinal hernia containing fat. There is moderate lumbar spondylosis. IMPRESSION: 1. No CT correlate for the patient's symptoms. 2. 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 Follow-up CT or MRI without and with contrast in 12 months is recommended. Reviewed, dictated and finalized at location B.
[2022-09-12 19:18] VITALS: BP 130/86; PULSE 69; RESP 20; TEMP 36.8; O2SAT 96
[2022-09-12 19:30] LABS: Basophils Percent Auto 0.5 % (0.2-1.2); Eosinophils Absolute Auto 0.5 K/mm3 (0-0.3); Eosinophils Percent Auto 6.9 % (0-4.4); Hematocrit 45.6 % (42.0-52.0); Hemoglobin 15.4 g/dL (14.0-18.0); Immature Granulocyte Absolute 0.02 K/mm3 (0.00-0.031); Immature Granulocyte Percent A 0.3 % (0-0.5); Lymphocytes Absolute Auto 2.06 K/mm3 (0.9-3.2); Lymphocytes Percent Auto 27.4 % (18.3-44.2); Mean Corpuscular HGB Conc 33.8 g/dl (32-36); Mean Corpuscular Hemoglobin 31.2 pg (26-34); Mean Corpuscular Volume 92.5 fl (80-100); Mean Platelet Volume 9.2 fl (7.4-10.4); Monocytes Absolute Auto 0.8 K/mm3 (0.1-0.6); Monocytes Percent Auto 11.2 % (2.6-8.5); Neutrophils Percent Auto 53.7 % (45.5-73.1); Platelet Count Result 291 k/mm3 (150-375); Red Blood Count 4.93 M/mm3 (4.6-6.20); Red Cell Distribution Width 14.3 % (11.5-14.5); White Blood Count 7.5 K/mm3 (4.5-10.0)
[2022-09-12 19:43] LABS: Alanine Aminotransferase 33 U/L (6-50); Albumin Level 4.4 g/dL (3.5-5.1); Alkaline Phosphatase 114 U/L (38-126); Anion Gap 7 mmol/L (8-16); Aspartate Amino Transferase 35 U/L (17-59); Bilirubin,Total 0.6 mg/dL (0.2-1.3); Blood Urea Nitrogen 17 mg/dL (9-20); Calcium 9.6 mg/dL (8.4-10.2); Carbon Dioxide 27 mmol/L (22-30); Chloride 105 mmol/L (98-107); Estimated CRCL calculation 95 ml/min; Estimated Glomerular Filt Rate > 60; Glucose 100 mg/dL (65-110); Lipase 188 U/L (23-300); Potassium 4.3 mmol/L (3.4-5.0); Sodium 139 mmol/L (137-145)
[2022-09-12 20:01] LABS: Add Urine Microscopic? NO; Appearance Urine Clear (Clear); Bilirubin Urine Negative (Negative); Blood Urine Negative (Negative); Color Urine Yellow (Yellow); Glucose Urine UA Negative (Negative); Ketones Urine Negative (Negative); Leukocyte Esterase Ur Negative LEU/UL (Negative); Nitrate Urine Negative (Negative); Protein Urine Negative (Negative); Specific Grav Ur 1.013 (1.001-1.035); Urobilinogen Urine Negative mg/dL (<2.0)
--- NOTE | 2022-09-12 22:12 | ED.ABDPAIN ---
HPI - Abdominal Pain General Chief Complaint: Abdominal Pain <Deanne Morrell MD - Last Filed: 09/13/22 00:00> Stated Complaint: abd pain <Deanne Morrell MD - Last Filed: 09/13/22 00:00> Time Seen by Provider: 09/12/22 22:12 <Deanne Morrell MD - Last Filed: 09/13/22 00:00> Source: patient <Deanne Morrell MD - Last Filed: 09/13/22 00:00> Mode of arrival: ambulatory <Deanne Morrell MD - Last Filed: 09/13/22 00:00> Limitations: no limitations <Deanne Morrell MD - Last Filed: 09/13/22 00:00> History of Present Illness HPI narrative: Patient is a 57-year-old male with a history of nephrolithiasis, left renal cell carcinoma status post left nephrectomy, presenting to the emergency department for evaluation of intermittent left lower quadrant pain over the past week. Patient reports that pain seems to be exacerbated in the morning and with movement. However, pain is also intermittent in nature and patient states he did take a 15-minute walk today and had no recurrence of pain. When pain does occur, it is located in the left lower quadrant described as aching in nature. Patient reports mild abdominal distention. He denies flank pain. He denies testicular pain, hematuria or dysuria. No urinary frequency. He denies constipation or diarrhea. Patient denies fever, chills, nausea or vomiting. Patient denies any pain at the time of my assessment. <Deanne Morrell MD - Last Filed: 09/13/22 00:00> Related Data Home Medications: Home Medications Medication Instructions Recorded Confirmed sertraline 50 mg tablet 75 mg PO DAILY 01/31/22 09/12/22 <Deanne Morrell MD - Last Filed: 09/13/22 00:00> Allergies/Adverse Reactions: Allergies Allergy/AdvReac Type Severity Reaction Status Date / Time No Known Drug Allergies Allergy Other Verified 09/12/22 17:36 <Deanne Morrell MD - Last Filed: 09/13/22 00:00> Review of Systems Review of Systems: CONSTITUTIONAL: Denies fever, chills, or sweats. EYES: Denies visual changes, redness, or discharge. ENT: Denies rhinorrhea, congestion, sore throat, or otalgia. CARDIOVASCULAR: Denies chest pain, palpitations, or edema. RESPIRATORY: Denies cough or dyspnea. GASTROINTESTINAL: Denies current abdominal pain, nausea, vomiting, or diarrhea. GENITOURINARY: Denies dysuria or hematuria. SKIN: Denies rash or itching. MUSCULOSKELETAL: Denies back pain, joint pain, or myalgia. NEUROLOGIC: Denies headache, numbness, or weakness. 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 <Deanne Morrell MD - Last Filed: 09/13/22 00:00> Family History Family History: Family History Other Colon cancer <Deanne Morrell MD - Last Filed: 09/13/22 00:00> Social History Social History: Social History Smoking status: Never smoker Second hand tobacco smoke exposure: No Alcohol intake: current Drinks per week: 7 Substance use: never Substance use type: does not use Gender identity (if verbalized by the patient): Male Sexual Orientation (if Verbalized by the Patient): Straight or Heterosexual Spiritual care concerns: No Agree to blood products: Yes <Deanne Morrell MD - Last Filed: 09/13/22 00:00> Exam Narrative: GENERAL: Awake, alert, conversant HEAD: Normocephalic, atraumatic. EYES: PERRLA and EOMI. ENT: Nares ziyad
--- NOTE | 2022-09-12 22:30 | PC.NURSE ---
noted that patient states he is here for left side pain that is intermittent and worse when he first gets up in the morning states it also hurts more when he turns to the side. states it gets better through out the day and at this time he has no pain.
== END 2022-09-13 01:10 | disposition home or self-care (01) ==
PROVIDERS: Emergency Provider Emergency Medicine; PCP Family Medicine Adolescent Medicine
DX: R10.32 Left lower quadrant pain (principal); F41.9 Anxiety disorder, unspecified; F42.9 Obsessive-compulsive disorder, unspecified; Z85.528 Personal history of other malignant neoplasm of kidney; Z90.5 Acquired absence of kidney
CPT/HCPCS: 36415; 74177; 80053; 81003; 83690; 85025; 99284; Q9967

== ENCOUNTER 2023-05-23 21:39 | Emergency (ER) | payer OTHER, SELFPAY ==
[2023-05-23] VITALS (12 sets, daily range): BP systolic 121–130; BP diastolic 73–94; PULSE 63–78; RESP 13–18; TEMP 36.3; O2SAT 92–98
--- NOTE | ~2023-05-23 | XR_ITS ---
EXAMINATION: XR chest 2V Exam Date/Time: 05/23/2023 21:59 CDT HISTORY: cp Comparison: 12/24/2021. RESULT: Lines, tubes, and devices: None. Lungs and pleura: Clear. Cardiomediastinal silhouette: Stable. Other: No acute osseous or upper abdominal finding. IMPRESSION: No acute cardiopulmonary process. Reviewed, dictated and finalized at location K.
--- NOTE | 2023-05-23 21:42 | ECG_ITS ---
Measurements Intervals [place] Rate: 70 P: 44 VA: 141 QRS: 33 QRSD: 84 T: 20 QT: 380 QTc: 412 Interpretive Statements SINUS RHYTHM NORMAL ELECTROCARDIOGRAM COMPARED TO ECG 11/23/2021 15:31:21 NO SIGNIFICANT CHANGES Electronically Signed On 05-24-2023 17:03:59 CDT by Yoel Abbott M.D.
[2023-05-23] MEDS: ASPIRIN 81 MG CHEWABLE TABLET 324 MG PO (22:07)
[2023-05-23 22:16] LABS: Basophils Absolute Auto 0.1 K/mm3 (0.0-0.1); Basophils Percent Auto 0.8 % (0.2-1.2); Eosinophils Absolute Auto 0.6 K/mm3 (0-0.3); Eosinophils Percent Auto 7.6 % (0-4.4); Hematocrit 42.6 % (42.0-52.0); Hemoglobin 14.4 g/dL (14.0-18.0); Immature Granulocyte Absolute 0.01 K/mm3 (0.00-0.031); Immature Granulocyte Percent A 0.1 % (0-0.5); Lymphocytes Absolute Auto 2.21 K/mm3 (0.9-3.2); Lymphocytes Percent Auto 29.6 % (18.3-44.2); Mean Corpuscular HGB Conc 33.8 g/dl (32-36); Mean Corpuscular Hemoglobin 31.1 pg (26-34); Mean Platelet Volume 9.1 fl (7.4-10.4); Monocytes Absolute Auto 0.6 K/mm3 (0.1-0.6); Monocytes Percent Auto 8.2 % (2.6-8.5); Neutrophils Percent Auto 53.7 % (45.5-73.1); Platelet Count Result 270 k/mm3 (150-375); Red Blood Count 4.63 M/mm3 (4.6-6.20); Red Cell Distribution Width 14.1 % (11.5-14.5); White Blood Count 7.5 K/mm3 (4.5-10.0)
[2023-05-23 22:25] LABS: Alanine Aminotransferase 26 U/L (6-50); Albumin Level 3.9 g/dL (3.5-5.1); Alkaline Phosphatase 105 U/L (38-126); Anion Gap 4 mmol/L (8-16); Aspartate Amino Transferase 34 U/L (17-59); Bilirubin,Total 0.4 mg/dL (0.2-1.3); Blood Urea Nitrogen 16 mg/dL (9-20); Calcium 8.9 mg/dL (8.4-10.2); Carbon Dioxide 27 mmol/L (22-30); Chloride 107 mmol/L (98-107); Estimated CRCL calculation 123 ml/min; Estimated Glomerular Filt Rate > 60; Glucose 137 mg/dL (65-110); Lipase 189 U/L (23-300); Potassium 3.9 mmol/L (3.4-5.0); Sodium 138 mmol/L (137-145)
--- NOTE | 2023-05-23 22:26 | ED.GENADULT ---
HPI - General Adult General Chief complaint: Chest Pain <NANCIE Fisher Last Filed: 05/24/23 16:57> Stated complaint: chest tightness <Florentino Chua PA-C - Last Filed: 05/24/23 16:57> Time Seen by Provider: 05/23/23 21:54 <Florentino Chua PA-C - Last Filed: 05/24/23 16:57> Source: patient <NANCIE Fisher Last Filed: 05/24/23 16:57> Mode of arrival: ambulatory <NANCIE Fisher Last Filed: 05/24/23 16:57> Limitations: no limitations <Florentino Chua PA-C - Last Filed: 05/24/23 16:57> History of Present Illness HPI narrative: This is a 58-year-old male with no pertinent PMH who presents to the ED with chief complaint of right-sided chest pain beginning about 2 hours prior to arrival in the ED. patient states that it was accompanied with pleuritic chest pain. He states it lasted for about an hour and a half. Reports pain located on the right side of the chest and did not radiate. Denies any LOC, nausea, vomiting. He states that on his way to the emergency department began to resolve. States he still came because he wanted to get it checked out. He states now he is relatively pain-free, still having some pain with deep breathing. Denies any recent illness. Denies fevers, cough, abdominal pain, back pain. <Florentino Chua PA-C - Last Filed: 05/24/23 16:57> Related Data Home medications: Home Medications Medication Instructions Recorded Confirmed sertraline 50 mg tablet 75 mg PO DAILY 01/31/22 03/22/23 multivitamin 1 tablet PO DAILY 03/22/23 03/22/23 <NANCIE Fisher Last Filed: 05/24/23 16:57> Allergies/adverse reactions: Allergies Allergy/AdvReac Type Severity Reaction Status Date / Time No Known Drug Allergies Allergy Other Verified 05/23/23 21:48 <NANCIE Fisher Last Filed: 05/24/23 16:57> [facility] Past Medical History Medical History: Medical History (Updated 05/24/23 @ 00:59 by Florentino Chua PA-C) Anxiety Cancer of kidney (10/2021) GERD (gastroesophageal reflux disease) Hearing loss OCD (obsessive compulsive disorder) Renal calculi <Florentino Chua PA-C - Last Filed: 05/24/23 16:57> Surgical History Surgical History: Surgical History No pertinent past surgical history 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 <Florentino Chua PA-C - Last Filed: 05/24/23 16:57> Family History Family History: Family History (Updated 03/18/23 @ 13:18 by Carolyn Huston [facility]) Mother Breast cancer Other Colon cancer <Florentino Chua PA-C - Last Filed: 05/24/23 16:57> Social History Social History: Social History Smoking status: Never smoker Second hand tobacco smoke exposure: No Alcohol intake: current Drinks per week: 7 Substance use: never Substance use type: does not use Living arrangements: with family Occupation/Education: occupation Gender identity (if verbalized by the patient): Male Sexual Orientation (if Verbalized by the Patient): Straight or Heterosexual Spiritual care concerns: No Agree to blood products: Yes <Florentino Chua PA-C - Last Filed: 05/24/23 16:57> Exam Narrative: GENERAL: Well-appearing, well-nourished, and in no acute distress. HEAD: Normocephalic, atraumatic. EYES: PERRLA and EOMI. ENT: Nares clear, no rhinorrhea or epistaxis. Mucous membranes moist. Oropharynx without tonsillar hypertrophy exudate or other lesions. NECK: Supple. No adenopathy or masses. CHEST: No respiratory distress. Clear to auscultation. No wheezes rales or rhonchi. HEART: Regular rate and rhythm. No murmur heard. Normal peripheral pulses. ABDOMEN: Soft, nontender, nondistended, normal active bowel sounds. MSK: Normal range of motion. No edema. SKIN: Warm, dry, no rash. NEURO: Alert and oriented x3. No focal deficits. PSYCH: Normal mood and
[2023-05-23 22:27] LABS: Prothrombin Time 13.2 Seconds (11.1-14.7)
[2023-05-23 22:28] LABS: Partial Thromboplastin Time 28.6 SECONDS (22.3-36.8)
[2023-05-23 22:37] LABS: Troponin I < 0.012 ng/mL (0.000-0.034)
[2023-05-24] VITALS (15 sets, daily range): BP systolic 116–123; BP diastolic 74–88; PULSE 61–67; RESP 12–21; O2SAT 93–98
[2023-05-24 00:02] LABS: D Dimer 0.31 ug/mL (<0.48)
[2023-05-24 04:02] LABS: Troponin I < 0.012 ng/mL (0.000-0.034)
== END 2023-05-24 04:13 | disposition home or self-care (01) ==
PROVIDERS: Emergency Medicine; Emergency Provider Physician Assistant; PCP Family Medicine Adolescent Medicine
DX: R07.89 Other chest pain (principal); K21.9 Gastro-esophageal reflux disease without esophagitis; F41.9 Anxiety disorder, unspecified; F42.9 Obsessive-compulsive disorder, unspecified; Z85.528 Personal history of other malignant neoplasm of kidney; Z87.442 Personal history of urinary calculi
CPT/HCPCS: 36415; 71046; 80053; 83690; 84484; 85025; 85380; 85610; 85730; 93005; 99284; A9270

== ENCOUNTER 2023-10-05 21:44 | Emergency (ER) | payer OTHER, SELFPAY ==
--- NOTE | ~2023-10-05 | XR_ITS ---
EXAMINATION: XR chest 2V DATE: 10/05/2023 22:20 INDICATION: Chest pain. TECHNIQUE: Frontal and lateral views of the chest were obtained. COMPARISON: Chest 2 views 05/23/2023, CT abdomen and pelvis 09/12/2022 FINDINGS: There is no pneumonia, pleural effusion, or pneumothorax. The heart size is normal. There i s mild chronic anterior wedging of multiple vertebral bodies. IMPRESSION: 1. No acute cardiopulmonary disease. Reviewed, dictated and finalized at location E. D DISTRIBUTOR
--- NOTE | 2023-10-05 21:45 | ECG_ITS ---
Measurements Intervals [place] Rate: 72 P: 43 [place]: 135 QRS: 12 QRSD: 88 T: 35 QT: 361 QTc: 396 Interpretive Statements SINUS RHYTHM BORDERLINE ST-T WAVE ABNORMALITY- ANTERIOR LEADS BORDERLINE ECG COMPARED TO ECG 05/23/2023 21:47:22 NO SIGNIFICANT CHANGES Electronically Signed On 10-06-2023 6:27:03 [employer] by Atif Richey D.O.
[2023-10-05 21:58] VITALS: BP 132/83; PULSE 77; RESP 16; TEMP 36.7; O2SAT 98
[2023-10-05 22:00] LABS: Basophils Absolute Auto 0.1 K/mm3 (0.0-0.1); Basophils Percent Auto 0.7 % (0.2-1.2); Eosinophils Absolute Auto 0.6 K/mm3 (0-0.3); Eosinophils Percent Auto 7.1 % (0-4.4); Hematocrit 44.4 % (42.0-52.0); Hemoglobin 14.7 g/dL (14.0-18.0); Immature Granulocyte Absolute 0.02 K/mm3 (0.00-0.031); Immature Granulocyte Percent A 0.2 % (0-0.5); Lymphocytes Absolute Auto 2.57 K/mm3 (0.9-3.2); Mean Corpuscular HGB Conc 33.1 g/dl (32-36); Mean Corpuscular Hemoglobin 30.6 pg (26-34); Mean Corpuscular Volume 92.3 fl (80-100); Mean Platelet Volume 9.2 fl (7.4-10.4); Monocytes Absolute Auto 0.8 K/mm3 (0.1-0.6); Monocytes Percent Auto 9.6 % (2.6-8.5); Neutrophils Absolute Auto 4.3 K/mm3 (1.3-6.7); Neutrophils Percent Auto 51.4 % (45.5-73.1); Platelet Count Result 274 k/mm3 (150-375); Red Blood Count 4.81 M/mm3 (4.6-6.20); Red Cell Distribution Width 14.1 % (11.5-14.5); White Blood Count 8.3 K/mm3 (4.5-10.0)
[2023-10-05 22:10] LABS: Alanine Aminotransferase 27 U/L (6-50); Albumin Level 4.1 g/dL (3.5-5.1); Alkaline Phosphatase 102 U/L (38-126); Anion Gap 7 mmol/L (8-16); Aspartate Amino Transferase 38 U/L (17-59); Bilirubin,Total 0.6 mg/dL (0.2-1.3); Blood Urea Nitrogen 18 mg/dL (9-20); Calcium 9.4 mg/dL (8.4-10.2); Carbon Dioxide 24 mmol/L (22-30); Chloride 107 mmol/L (98-107); Estimated CRCL calculation 123 ml/min; Estimated Glomerular Filt Rate > 60; Glucose 122 mg/dL (65-110); Lipase 231 U/L (23-300); Potassium 3.8 mmol/L (3.4-5.0); Sodium 138 mmol/L (137-145)
[2023-10-05 22:13] LABS: INR 0.9; Prothrombin Time 12.8 Seconds (11.1-14.7)
[2023-10-05 22:22] LABS: Troponin I < 0.012 ng/mL (0.000-0.034)
[2023-10-06 00:01] VITALS: PULSE 74; RESP 18
--- NOTE | 2023-10-06 00:03 | ED.GENADULT ---
HPI - General Adult General Chief complaint: Chest Pain Stated complaint: chest tightness at around 8pm this evening- Time Seen by Provider: 10/05/23 23:15 History of Present Illness HPI narrative: Patient is a 58-year-old gentleman who presents the emergency department with chief complaint of funny feeling in the right side of the chest and a tingling sensation in the left arm. The patient reports no slurred speech she denied focal weakness of the left upper extremity or left side of the body. The patient states he read on the Internet and decided he should come to the emergency department for evaluation. Patient states that symptoms have essentially resolved at this time. Related Data Home Medications Medication Instructions Recorded Confirmed sertraline 50 mg tablet 75 mg PO DAILY 01/31/22 06/04/23 multivitamin 1 tablet PO DAILY 03/22/23 06/04/23 Allergies Allergy/AdvReac Type Severity Reaction Status Date / Time No Known Drug Allergies Allergy Other Verified 10/05/23 21:44 Review of Systems Review of Systems: A 10 system review of systems was completed on the patient and is negative except for what is stated in the HPI. Nursing and ancillary documentation was reviewed. 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 Family History Family History Mother Breast cancer Father Colon cancer Social History Social History Smoking status: Never smoker Second hand tobacco smoke exposure: No Alcohol intake: current Drinks per week: 7 Substance use: never Substance use type: does not use Lack of Transportation: No Lack of Food: Never True Current Housing: I Have Housing Concerned About Future Housing: No Difficulty Paying Gas/Electric Bills: No Difficulty Paying for Meds: No Currently Unemployed: No Education: Master's Degree or Higher Difficulty w/ Childcare or Family Care: No Living arrangements: with family Occupation/Education: occupation Gender identity (if verbalized by the patient): Male Sexual Orientation (if Verbalized by the Patient): Straight or Heterosexual Spiritual care concerns: No Agree to blood products: Yes Exam Narrative: GENERAL: Well-appearing, well-nourished, and in no acute distress. HEAD: Normocephalic, atraumatic. EYES: PERRLA and EOMI. ENT: Nares clear, no rhinorrhea or epistaxis. Mucous membranes moist. NECK: Supple. CHEST: Clear to auscultation. No respiratory distress. HEART: Regular rate and rhythm. No murmur heard. Normal peripheral pulses. ABDOMEN: Soft, nontender, nondistended, normal active bowel sounds. EXTREMITIES: Normal range of motion. No edema. SKIN: Warm, dry, no rash. NEURO: No focal deficits. Alert and oriented x3. PSYCH: Normal mood and affect. Course Vital Signs Vital signs: Vital Signs Temperature 36.7 C 10/05/23 21:58 Pulse Rate 77 10/05/23 21:58 Respiratory Rate 16 10/05/23 21:58 Blood Pressure 132/83 10/05/23 21:58 Pulse Oximetry 98 10/05/23 21:58 Oxygen Delivery Room Air 10/05/23 21:58 Temperature 36.7 C 10/05/23 21:58 Pulse Rate 74 10/06/23 00:01 Respiratory Rate 18 10/06/23 00:01 Blood Pressure 132/83 10/05/23 21:58 Pulse Oximetry 98 10/05/23 21:58 Oxygen Delivery Room Air 10/05/23 23:16 Medical Decision Making [facility] Narrative Medical decision making narrative: Differential diagnosis includes anxiety, atypical chest pain,
[2023-10-06] MEDS: ASPIRIN 81 MG CHEWABLE TABLET 324 MG PO (01:18)
[2023-10-06 01:55] LABS: Troponin I < 0.012 ng/mL (0.000-0.034)
[2023-10-06 02:00] VITALS: BP 124/86; PULSE 67; RESP 15; O2SAT 93
[2023-10-06 02:34] VITALS: BP 128/93; PULSE 68; RESP 17; O2SAT 95
== END 2023-10-06 02:40 | disposition home or self-care (01) ==
PROVIDERS: Emergency Medicine; Emergency Provider Emergency Medicine; PCP Family Medicine Adolescent Medicine
DX: R07.89 Other chest pain (principal); F41.9 Anxiety disorder, unspecified; F42.9 Obsessive-compulsive disorder, unspecified; Z85.528 Personal history of other malignant neoplasm of kidney; Z87.442 Personal history of urinary calculi; R94.31 Abnormal electrocardiogram [ECG] [EKG]
CPT/HCPCS: 36415; 71046; 80053; 83690; 84484; 85025; 85610; 85730; 93005; 99284; A9270

== ENCOUNTER 2023-11-23 16:11 | Emergency (ER) | payer OTHER, SELFPAY ==
--- NOTE | ~2023-11-23 | XR_ITS ---
EXAM: XR tibia fibula LT 2V DATE: 11/23/2023 17:44 HISTORY: felt pop lt low leg and foot 5 days ago . COMPARISON: None available. FINDINGS: Normal mineralization. Old avulsion fragment at the lateral malleolus. No acute fracture o r dislocation. No lytic or blastic lesion. Mild degenerative change in the knee and ankle. No erosion or periosteal change. Subcutaneous edema in the lower leg. IMPRESSION: No acute osseous finding in the left tibia/fibula. Reviewed, dictated and finalized at location K. NCILING CLERK
--- NOTE | ~2023-11-23 | XR_ITS ---
EXAM: XR foot LT min 3V DATE: 11/23/2023 17:43 HISTORY: felt pop left low leg 5 days ago . COMPARISON: None available. FINDINGS: Normal mineralization. Old avulsion fracture fragment at the lateral malleolus. No acute f racture or dislocation. No lytic or blastic lesion. Mild degenerative change in the ankle joint and f irst MTP joint. Minimal Achilles and moderate plantar enthesopathy No erosion or periosteal change. S oft tissues within normal limits. IMPRESSION: No acute osseous finding in the left foot. Reviewed, dictated and finalized at location K. ATRIC SOCIAL WORKER
[2023-11-23 16:24] VITALS: BP 128/82; PULSE 75; RESP 16; TEMP 37.2; O2SAT 99
--- NOTE | 2023-11-23 17:09 | ED.LOWEXIN ---
HPI - Extremity Injury (Lower) General Chief Complaint: Extremity Injury, Lower Stated Complaint: left calf/foot issue Time Seen by Provider: 11/23/23 17:09 Source: patient Mode of arrival: ambulatory Limitations: no limitations History of Present Illness HPI Narrative: 58-year-old male presents with complaint of pain and swelling to left lower extremity, left ankle and left foot. On 11/18 pt states was going down his stairs and felt pop to L calf that caused him to roll L foot. Pt has been taking ibuprofen for pain and applying ice. Elevating when he can. Swelling and pain not improving. concerned for fracture. All systems reviewed and negative except as noted above. Related Data Home Medications Medication Instructions Recorded Confirmed sertraline 50 mg tablet 75 mg PO DAILY 01/31/22 11/23/23 multivitamin 1 tablet PO DAILY 03/22/23 11/23/23 Allergies Allergy/AdvReac Type Severity Reaction Status Date / Time No Known Drug Allergies Allergy Other Verified 11/23/23 16:39 Review of Systems Review of Systems: CONSTITUTIONAL: Denies fever, chills, or sweats. EYES: Denies visual changes, redness, or discharge. ENT: Denies rhinorrhea, congestion, sore throat, or otalgia. CARDIOVASCULAR: Denies chest pain, palpitations, or edema. RESPIRATORY: Denies cough or dyspnea. GASTROINTESTINAL: Denies abdominal pain, nausea, vomiting, or diarrhea. GENITOURINARY: Denies dysuria or hematuria. SKIN: Denies rash or itching. MUSCULOSKELETAL: Reports pain, swelling and bruising to L calf, ankle and L foot. ambulatory with limp NEUROLOGIC: Denies headache, numbness, or weakness. PSYCHIATRIC: Denies anxiety or depression. All other systems reviewed are negative, except as documented in HPI. 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 Family History Family History Mother Breast cancer Father Colon cancer Social History Social History Smoking status: Never smoker Second hand tobacco smoke exposure: No Alcohol intake: current Drinks per week: 7 Substance use: never Substance use type: does not use Lack of Transportation: No Lack of Food: Never True Current Housing: I Have Housing Concerned About Future Housing: No Difficulty Paying Gas/Electric Bills: No Difficulty Paying for Meds: No Currently Unemployed: No Education: Master's Degree or Higher Difficulty w/ Childcare or Family Care: No Living arrangements: with family Occupation/Education: occupation Gender identity (if verbalized by the patient): Male Sexual Orientation (if Verbalized by the Patient): Straight or Heterosexual Spiritual care concerns: No Agree to blood products: Yes Comments At time of signature, agree with nursing past medical, surgical, social and family history. There is no relevant family history pertinent to the presenting complaint. Exam Narrative: GENERAL: This is a well-nourished, well-developed patient, in no apparent distress. HEAD: normocephalic, atraumatic. EYES: PERRL. Sclera clear/white. Vision is grossly intact. EARS: External ears normal NOSE: External nose normal NECK: Neck supple, non-tender without lymphadenopathy, masses or thyromegaly. CARDIOVASCULAR: Regular rate and rhythm without murmurs, gallops, or rubs. RESPIRATORY: Clear to auscultation. Breath sounds equal bilaterally. No wheezes, rales, or rhonchi. SKIN: warm, Dry, intact with no suspicious lesions or rash, good text
== END 2023-11-23 18:34 | disposition home or self-care (01) ==
PROVIDERS: Emergency Provider Nurse Practitioner Family; PCP Family Medicine Adolescent Medicine
DX: S93.602A Unspecified sprain of left foot, initial encounter (principal); T14.90XA Injury, unspecified, initial encounter; Z85.528 Personal history of other malignant neoplasm of kidney
CPT/HCPCS: 73590; 73630; 99214; G0463

== ENCOUNTER → 2023-12-12 14:25 | Outpatient (CLI) | payer OTHER, SELFPAY ==
--- NOTE | ~2023-12-12 | MR_ITS ---
EXAMINATION: MR ankle LT wo con DATE: 12/12/2023 15:11 INDICATION: Left ankle pain. Posterior ankle pain. TECHNIQUE: Magnetic resonance imaging (MRI) of the left ankle was performed without intravenous contr ast. Sequences included sagittal PD-weighted FS FSE, sagittal PD-weighted FSE, coronal PD-weighted FS FSE, coronal PD-weighted FSE, axial PD-weighted FS FSE, and axial PD-weighted FSE. COMPARISON: Left tibia and fibula radiographs 11/23/2023 FINDINGS: Medial ankle ligaments: There are changes of prior sprain of the deltoid ligament characterized by thickening and increased s ignal involving the superficial component. The deep component of deltoid ligament is normal. Lateral ankle ligaments: There are changes of prior lateral ankle sprain characterized by thickening and increased signal inte nsity involving the anterior talofibular ligament, calcaneofibular ligament, and anterior tibiofibula r ligament. There is an old avulsion fracture of distal fibula at the attachment of the anterior talo fibular ligament. Posterior talofibular ligament and posterior tibiofibular ligament are normal. Tendons: The anterior and medial ankle tendons are normal. There is a longitudinal split tear of peroneus brev is tendon. There is mild peroneus longus tendinopathy. There is mild Achilles tendinopathy. Partially visualized is muscle edema in the posterior calf. Plantar fascia: There is thickening and increased signal involving the central band of the plantar fascia, consistent with fasciitis. There is an enthesophyte at the calcaneal attachment. Bones/other: Bone alignment is normal. No fracture. The talar dome is normal. Fluid: There is no joint effusion. IMPRESSION: 1. Partially visualized edema of the posterior calf musculature, likely muscle strain. 2. Changes of medial and lateral ankle sprains. Old avulsion fracture of distal fibula at the attachm ent of anterior talofibular ligament with nonunion. 3. Longitudinal split tear of peroneus brevis tendon. 4. Plantar fasciitis. Reviewed, dictated and finalized at location E. RESSOR BATTERY PELLETS IMPRESSION: 1. Partially visualized edema of the posterior calf musculature, likely muscle strain. 2. Changes of medial and lateral ankle sprains. Old avulsion fracture of distal fibula at the attachment of anterior talofibular ligament with nonunion. 3. Longitudinal split tear of peroneus brevis tendon. 4. Plantar fasciitis.
== END ==
PROVIDERS: PCP Nurse Practitioner Family; Visit Provider Nurse Practitioner Family
DX: R60.0 Localized edema (principal); S86.312A Strain of muscle(s) and tendon(s) of peroneal muscle group at lower leg level, left leg, initial encounter; M72.2 Plantar fascial fibromatosis; S82.832K Other fracture of upper and lower end of left fibula, subsequent encounter for closed fracture with nonunion; X58.XXXD Exposure to other specified factors, subsequent encounter; X58.XXXA Exposure to other specified factors, initial encounter
CPT/HCPCS: 73721

== ENCOUNTER 2024-07-01 08:36 | Day surgery (SDC) | payer OTHER, SELFPAY ==
[2024-06-04 14:04] VITALS: BMI 31.1
[2024-06-19 13:11] VITALS: BMI 31.1
[2024-07-01 10:03] VITALS: BP 120/74; PULSE 63; RESP 16; TEMP 36.8; O2SAT 95; BMI 29.2
--- NOTE | 2024-07-01 10:16 | PM.HPGS ---
History of Present Illness History of Present Illness Consent: Risks, benefits, and alternatives have been discussed and questions answered. Patient agrees to proceed with procedure. Chief complaint: family history of colon cancer Narrative: Lencho Wynne is a 59 year old male presents for screening colonoscopy. Patient's current weight appetite and bowel movements are normal. Patient has had no bleeding. His bowel habits are normal. Family history is significant that his father had colon cancer. Patient presents today for neoplasia screening colonoscopy. Does have a past medical history of a renal cell carcinoma. Review of Systems Review of Systems: All systems reviewed & are unremarkable except as noted in HPI and below PMFSH Past Medical History Medical History Anxiety Cancer of kidney (10/2021) GERD (gastroesophageal reflux disease) Hearing loss OCD (obsessive compulsive disorder) Renal calculi Surgical History Surgical History No pertinent past surgical history Status post biopsy of kidney 11/2021: papillary renal cell carcinoma type 1 Family History Family History Mother Breast cancer Father Colon cancer Social History Social History Smoking status: Never smoker Second hand tobacco smoke exposure: No Alcohol intake: current Drinks per week: 2 Substance use: never Substance use type: does not use Lack of Transportation: No Lack of Food: Never True Current Housing: I Have Housing Concerned About Future Housing: No Difficulty Paying Gas/Electric Bills: No Difficulty Paying for Meds: No Currently Unemployed: No Education: Master's Degree or Higher Difficulty w/ Childcare or Family Care: No Living arrangements: with family Occupation/Education: occupation Gender identity (if verbalized by the patient): Male Sexual Orientation (if Verbalized by the Patient): Straight or Heterosexual Spiritual care concerns: No Agree to blood products: Yes Meds Home Medications and Allergies Home Medications Medication Instructions Recorded Confirmed Type sertraline 50 mg tablet 75 mg PO DAILY 01/31/22 07/01/24 History multivitamin 1 tablet PO DAILY 03/22/23 06/19/24 History Allergies Allergy/AdvReac Type Severity Reaction Status Date / Time No Known Drug Allergies Allergy Other Verified 07/01/24 10:00 Vital Signs Vital Signs - 24 hr 07/01/24 10:03 Temperature 98.3 F Pulse Rate 63 Respiratory Rate 16 Blood Pressure 120/74 Pulse Oximetry 95 Oxygen Delivery Room Air Exam Narrative: Physical exam reveals patient alert. Vital signs stable. HEENT is unremarkable. Patient is anicteric. Lungs are clear to auscultation and to percussion heart is without murmur or extra sounds. Abdomen bowel sounds are present soft nontender with no organomegaly. Digital external rectal exam normal. Assessment and Plan Assessment and plan (1) Family history of colon cancer in father: Code(s): Z80.0 - Family history of malignant neoplasm of digestive organs Status: Acute Assessment and Plan: Patient's father had colon cancer. Plan for surveillance colonoscopy at 5 year intervals. (2) History of renal cell carcinoma: Code(s): Z85.528 - Personal history of other malignant neoplasm of kidney Status: Acute
[2024-07-01] MEDS: LACTATED RINGERS 1,000 ML 150 ML IV CONT (10:17)
--- NOTE | 2024-07-01 10:44 | P.PNAN_ITS ---
Anes - Initial Pre Proc Eval Procedure: Operation Date: 07/01/24 11:30 Proposed Procedures p Screening Colonoscopy - Michael Ramirez MD Date/Time: 07/01/24 10:44 Surgeon: Michael Ramirez MD Pre Op Diagnosis: family history of colon cancer Patient Data Age: 59 Gender: M Height: 1.7 m Weight: 84.55 kg Last Vital Signs Temp 36.8 C 07/01/24 10:03 Pulse 63 07/01/24 10:03 Resp 16 07/01/24 10:03 BP 120/74 07/01/24 10:03 Pulse Ox 95 07/01/24 10:03 O2 Del Method Room Air 07/01/24 10:03 Allergies Allergy/AdvReac Type Severity Reaction Status Date / Time No Known Drug Allergies Allergy Other Verified 07/01/24 10:00 Home Medications Medication Instructions Recorded Confirmed Type sertraline 50 mg tablet 75 mg PO DAILY 01/31/22 07/01/24 History multivitamin 1 tablet PO DAILY 03/22/23 06/19/24 History Patient hx anesthesia problems: none Family hx anesthesia problems: none Results Review: All pre-operative results and documents have been reviewed as part of the pre- operative evaluation. [facility] Past Medical History Medical History Anxiety Cancer of kidney (10/2021) GERD (gastroesophageal reflux disease) Hearing loss OCD (obsessive compulsive disorder) Renal calculi Surgical History Surgical History No pertinent past surgical history Status post biopsy of kidney 11/2021: papillary renal cell carcinoma type 1 Family History Family History Mother Breast cancer Father Colon cancer Social History Social History Smoking status: Never smoker Second hand tobacco smoke exposure: No Alcohol intake: current Drinks per week: 2 Substance use: never Substance use type: does not use Lack of Transportation: No Lack of Food: Never True Current Housing: I Have Housing Concerned About Future Housing: No Difficulty Paying Gas/Electric Bills: No Difficulty Paying for Meds: No Currently Unemployed: No Education: Master's Degree or Higher Difficulty w/ Childcare or Family Care: No Living arrangements: with family Occupation/Education: occupation Gender identity (if verbalized by the patient): Male Sexual Orientation (if Verbalized by the Patient): Straight or Heterosexual Spiritual care concerns: No Agree to blood products: Yes Anes - Eval Final PreProcedure Day of Procedure 07/01/24 10:44 Patient weight: overweight Heart: regular rate and rhythm Lungs: clear to auscultation Airway: Mallampati scale class II Neurological: alert and oriented ASA classification: III Emergent: no Anesthetic plan: proceed Anesthesia type and monitoring: general GIVS and standard monitoring Results Review: All pre-operative results and documents have been reviewed as part of the pre- operative evaluation. Informed Consent: The patient's anesthetic plan and its attendant risks and benefits were discussed with the patient/family/POA. Questions were solicited and answers provided to the satisfaction of the patient/family/POA.
[2024-07-01 11:03] VITALS: BP 108/73; PULSE 65; RESP 14; O2SAT 94
--- NOTE | 2024-07-01 11:09 | WPDANESPN ---
Anes - Prog Note Post-Op Date/Time: 07/01/24 11:09 Cardiovascular status: normal Respiratory status: normal Airway patency: baseline Mental status: baseline Post-Op hydration status: normal Vital Signs: Last Vital Signs Temp 36.8 C 07/01/24 10:03 Pulse 65 07/01/24 11:03 Resp 14 07/01/24 11:03 BP 108/73 07/01/24 11:03 Pulse Ox 94 07/01/24 11:03 O2 Del Method Room Air 07/01/24 11:03 Pain Score (VAS): 0/10 I/O: Intake & Output 06/30/24 07/01/24 07/01/24 23:59 07:59 15:59 Intake Total 300 Balance 300 Patient Feedback: Patient satisfied with anesthetic care.
[2024-07-01 11:13] VITALS: BP 104/81; PULSE 67; RESP 16; O2SAT 96
[2024-07-01 11:26] VITALS: BP 109/84; PULSE 62; RESP 20; O2SAT 96
== END 2024-07-01 11:43 | disposition home or self-care (01) ==
PROVIDERS: PCP Family Medicine Adolescent Medicine; Visit Provider Internal Medicine Gastroenterology
PROC: 0DJD8ZZ Inspection of Lower Intestinal Tract, Via Natural or Artificial Opening Endoscopic (ICD-10-PCS; CPT 45378; principal; 2024-07-01 11:30)
DX: Z80.0 Family history of malignant neoplasm of digestive organs (principal); K64.4 Residual hemorrhoidal skin tags
CPT/HCPCS: 45378

== ENCOUNTER 2025-01-09 09:47 | Outpatient (CLI) | payer OTHER, SELFPAY ==
--- OUTSIDE RECORDS SUMMARY | 2025-01-09 09:50 | XMS_ITS | Clinical Summary ---
Author Organization [facility] [address] Address [address] [place] [address] Care Team Providers Care Greenskeeper Name Role Phone Olegario Mondragon MD Primary Care Prov ider Estevan Garza MD Unavailable [phone] Allergies No known active allergies Medications traMADoL (ULTRAM) 50 mg tablet Take 50-100 mg by mouth every 6 (six) hours as needed for pain (kidney stone) 0 11/29/2021 Active sertraline (ZOLOFT) 50 mg tabletIndication s:Obsessive-Comp ulsive Disorder Take 75 mg by mouth daily 06/13/2020 Active tamsulosin (FLOMAX) 0.4 mg extended release capsule Take 0.4 mg by mouth daily Active multivitamin/iro n/folic acid (CENTRUM COMPLETE ORAL) Take 1 tablet by mouth daily Active HYDROcodone-acet aminophen (NORCO) 5-325 mg per tabletIndication s:Pain Take 1 tablet by mouth every 6 (six) hours as needed for pain 20 tablet 12/22/2021 Active Active Problems Problem Noted Date Diagnosed Date Renal mass, left 12/22/2021 Renal mass 12/22/2021 Left renal mass 12/07/2021 Overview (12/07/2021): Added automatically from request for surgery [id number] Surgical History Surgery Date Site/Laterality Comments EXTRACORPOREAL SHOCK WAVE LITHOTRIPSY Medical History Medical History Date Comments Left renal mass 12/07/2021 Added automatica lly from request for surgery [id number] Social History Tobacco Use Types Packs/Day Years Used Date Smoking Tobacco: Former Cigars Q uit: 2018 AUDIT-C Answer Date Recorded Q1: How often do you have a drink containing alcohol? 4 or more times a week 12/14/2021 Q2: How many drinks containi ng alcohol do you have on a typical day when you are drinking? 1 or 2 Q3: How often do you have si x or more drinks on one occasion? Never 12/14/2021 Sex and Gender Information Value Date Recorded Sex Assigned at Not on file Legal Sex Male 2:29 AM ACID SUPERVISOR Gender Identity Not on file Sexual Orientation Not on file Obstetrics History Last Filed Vital Signs Vital Sign Reading Time Taken Comments Blood Pressure 123/70 12/23/2021 12:09 PM ACID SUPERVISOR Pulse 83 12/23/2021 12:09 PM ACID SUPERVISOR Temperature 37.3 C (99.1 F) 12/23/2021 12:09 PM ACID SUPERVISOR Respiratory Rate 18 12/23/2021 12:09 PM ACID SUPERVISOR Oxygen Saturation 94% 12/23/2021 12:09 PM ACID SUPERVISOR Inhaled Oxygen Concentration - - Weight 87.1 kg (192 lb 0.3 oz) 12/22/2021 10:52 AM ACID SUPERVISOR Height 170.2 cm (5' 7 ) 12/22/2021 10:52 AM ACID SUPERVISOR Body Mass Index 30.07 12/22/2021 10:52 AM ACID SUPERVISOR Plan of Treatment Not on file Insurance [facility] [employer] Address: [facility] [id number] [place] [id number] [facility] Advance Directives For more information, please contact: [phone] * Full Code (Latest Code Status on File) Date Activated Date Inactivated Comments 12/22/2021 7:40 PM 12/23/2021 7:51 PM * Full Code Date Activated Date Inactivated Comments 12/22/2021 7:40 PM 12/22/2021 7:40 PM Care Teams Greenskeeper Relationship Specialty Start Date End Date Olegario Mondragon MD [address] [place] [address] PCP - General Family Medicine 12/12/21 [place] [address] [place] [address] Consulting Physician Urology 12/22/21
--- OUTSIDE RECORDS SUMMARY | 2025-01-09 09:50 | XMS_ITS | Referral Summary ---
Author Organization [facility] [address] Address [address] [place] [address] Care Team Providers Care Maintenance Mechanic Engine Name Role Phone Olegario Mondragon MD Primary Care Prov ider Estevan Garza MD Unavailable [phone] Allergies No known active allergies Medications [...] (12/07/2021): Added automatically from request for surgery [id number] Social History Tobacco Use Types Packs/Day Years [...] on file Legal Sex Male 2:29 AM MANAGER OF CLINICAL Gender Identity Not on file Sexual Orientation Not on file Last Filed Vital Signs Vital Sign Reading Time Taken Comments Blood Pressure 123/70 12/23/2021 12:09 PM MANAGER OF CLINICAL Pulse 83 12/23/2021 12:09 PM MANAGER OF CLINICAL Temperature 37.3 C (99.1 F) 12/23/2021 12:09 PM MANAGER OF CLINICAL Respiratory Rate 18 12/23/2021 12:09 PM MANAGER OF CLINICAL Oxygen Saturation 94% 12/23/2021 12:09 PM MANAGER OF CLINICAL Inhaled Oxygen Concentration - - Weight 87.1 kg (192 lb 0.3 oz) 12/22/2021 10:52 AM MANAGER OF CLINICAL Height 170.2 cm (5' 7 ) 12/22/2021 10:52 AM MANAGER OF CLINICAL Body Mass Index 30.07 12/22/2021 10:52 AM MANAGER OF CLINICAL Plan of Treatment Not on file Insurance [facility] [facility] Advance Directives For more information, please contact: [phone] * Full Code (Latest Code Status on File) Date Activated Date Inactivated Comments 12/22/2021 7:40 PM 12/23/2021 7:51 PM * Full Code Date Activated Date Inactivated Comments 12/22/2021 7:40 PM 12/22/2021 7:40 PM Care Teams Maintenance Mechanic Engine Relationship Specialty Start Date End Date Olegario Mondragon MD [address] [place] [address] PCP - General Family Medicine 12/12/21 [place] [address] [place] [address] Consulting Physician Urology 12/22/21
[2025-01-09 10:17] LABS: Alanine Aminotransferase 24 U/L (6-50); Alkaline Phosphatase 105 U/L (38-126); Anion Gap 7 mmol/L (4-12); Aspartate Amino Transferase 29 U/L (17-59); Bilirubin,Total 0.8 mg/dL (0.2-1.3); Blood Urea Nitrogen 16 mg/dL (9-20); Calcium 9.3 mg/dL (8.4-10.2); Carbon Dioxide 29 mmol/L (22-30); Chloride 105 mmol/L (98-107); Cholesterol 204 mg/dL (0-200); Estimated Glomerular Filt Rate > 60; Glucose 96 mg/dL (65-110); HDL Direct 38 mg/dL; Potassium 4.2 mmol/L (3.4-5.0); Sodium 141 mmol/L (137-145); Triglycerides 153 mg/dL (<150)
[2025-01-09 10:28] LABS: LDL Cholesterol Direct 134 mg/dL
[2025-01-09 10:48] LABS: Prostate Specific Antigen 1.4 ng/mL (< OR = 4.0)
== END 2025-01-09 09:48 | disposition home or self-care (01) ==
LOC: ANHLAB 09:48
PROVIDERS: PCP Family Medicine Adolescent Medicine; Visit Provider Family Medicine Adolescent Medicine
DX: E78.00 Pure hypercholesterolemia, unspecified (principal); Z12.5 Encounter for screening for malignant neoplasm of prostate; Z85.528 Personal history of other malignant neoplasm of kidney
CPT/HCPCS: 36415; 80053; 80061; 84153; G0103